=== PATIENT | female | born 1965 | race Caucasian/White ===

== ENCOUNTER 2017-04-25 10:13 | Emergency (ER) | payer SELFPAY ==
[~2017-04-25] VITALS: Wt 78.3 kg
--- NOTE | 2017-04-25 11:14 | ERD ---
ER Documentation Chief Complaint Chief Complaint SYNCOPAL EPISODE 2 DAYS AGO X3, GENERALIZED WEAKNESS REPORTED HPI The patient is a 51-year-old female, presenting to the ER because the heart syncope 2 days ago. She fainted 3 times over 15 minutes 2 days ago did not go to the hospital because of insurance. She did not remember what happened. She had similar symptoms previously but did not seek medical attention. She denies headache, neck pain, chest pain, dyspnea, abdominal pain, vomiting, urinary/ fecal incontinence. She does not smoke nor drink Past medical history: None Past surgical history: Appendectomy, cholecystectomy ROS All systems reviewed and are negative except as per history of present illness. Medications Home Meds No Active Prescriptions or Reported Meds Allergies Allergies: Coded Allergies: No Known Allergy (Unverified , 04/25/17) Physical Exam Vitals Vital Signs Date Time Temp Pulse Resp B/P Pulse Ox O2 Delivery O2 Flow Rate FiO2 04/25/17 10:25 98.4 81 18 127/71 98 Physical Exam Const: No acute distress. Head: Atraumatic. Eyes: Normal Conjunctiva. ENT: Normal External Ears, Nose and Mouth. Neck: Full range of motion. No meningismus. Resp: Clear to auscultation bilaterally. Cardio: Regular rate and rhythm. Abd: Soft, non distended, normal bowel sounds, non tender. Skin: No petechiae or rashes. Back: No midline or flank tenderness. Ext: No cyanosis, or edema. Neur: Awake and alert. No focal deficit Psych: Normal Mood and Affect. Result Diagram: 04/25/17 1130 04/25/17 1130 Results 24 hrs Laboratory Tests Test 04/25/17 11:30 White Blood Count 9.610^3/ul Red Blood Count 4.7810^6/ul Hemoglobin 14.6g/dl Hematocrit 44.0% Mean Corpuscular Volume 92.1fl Mean Corpuscular Hemoglobin 30.5pg Mean Corpuscular Hemoglobin Concent 33.2g/dl Red Cell Distribution Width 12.2% Platelet Count 62186^3/UL Mean Platelet Volume 9.8fl Neutrophils % 40.9% Lymphocytes % 42.3% Monocytes % 5.6% Eosinophils % 10.0% Basophils % 0.8% Nucleated Red Blood Cells % 0.0/100WBC Neutrophils # 3.910^3/ul Lymphocytes # 4.110^3/ul Monocytes # 0.510^3/ul Eosinophils # 1.010^3/ul Basophils # 0.110^3/ul Nucleated Red Blood Cells # 0.010^3/ul Sodium Level 144mmol/L Potassium Level 4.3mmol/L Chloride Level 103mmol/L Carbon Dioxide Level 30mmol/L Anion Gap 15 Blood Urea Nitrogen 16mg/dl Creatinine 0.80mg/dl Glucose Level 100mg/dl Calcium Level 9.8mg/dl Troponin I < 0.012ng/ml Procedures/[place] [id number] Radiology Main Line: [phone] DIAGNOSTIC IMAGING REPORT Patient: DESIREE FLORES : 1965 Age: 51 Sex: F MR #: [id number] DOS: 04/25/17 1122 Ordering MD: TIKA WASHINGTON MD Location: E/R Room/Bed: PROCEDURE: CT Brain without contrast. CLINICAL INDICATION: Neurologic deficit TECHNIQUE: A CT of the brain was performed on multidetector high-resolution CT scanner utilizing axial sections from the skull base through the vertex without contrast. One or more of the following dose reduction techniques were used: Automated exposure control, Adjustment of the mA and/or kV according to patient size, and/or use of iterative reconstruction technique. DICOM images are available. DOSE: CTDI = 44/45 mGy and the DLP = 720 mGy-cm. COMPARISON: None available FINDINGS: No acute intracranial hemorrhage, significant mass effect or midline shift. The rose-white differentiation is grossly preserved. Scattered right frontal and right parietal lobe calcifications. The ventricles are normal in size for age. No significant opacification of the visualized paranasal sinuses or mastoids. IMPRESSION: No acute intracranial findings. 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 RPTAT: AA .Austen Mercado MD, Date Time Electronically viewed and signed by .Austen Mercado MD, on 04/25/2017 12:26 .T/ CC: TIKA WASHINGTON MD EKG: Read by emergency physician Rate/Rhythm: Normal Sinus Rhythm 68 beats/min QRS, ST, T-waves: No ST elevation, no T inversion Impression: Normal EKG MEDICAL MAKING DECISION: The patient is a 51-year-old female, presenting with a copy of unclear etiology, is stable for outpatient follow-up. She remains when the emergency department and denies any symptoms The differential diagnoses considered include but are not limited to bradyarrhythmia, tachyarrhythmias, aortic outflow obstruction, neurogenic including subarachnoid hemorrhage, orthostatic hypotension and all of its causes , hypoglycemia, dysautonomia, medications. Departure Diagnosis: Primary Impression: Syncope Condition: Stable Comments I discussed the findings with the patient. I advised the patient to follow-up with the primary physician in about 1-2 days, sooner if needed and return if any concern. Disclaimer: Inadvertent spelling and grammatical errors are likely due to EHR/ dictation software use and do not reflect on the overall quality of patient care. Also, please note that the electronic time recorded on this note does not necessarily reflect the actual time of the patient encounter. TIKA WASHINGTON MD Apr 25, 2017 11:14
[2017-04-25 12:06] LABS: BASOPHIL # 0.1 10^3/ul (0.0-0.1); BASOPHILS % 0.8 % (0.0-2.0); BLOOD UREA NITROGEN 16 mg/dl (7-20); CALCIUM 9.8 mg/dl (8.4-10.2); CARBON DIOXIDE 30 mmol/L (21-31); GLUCOSE 100 mg/dl (70-220); HEMOGLOBIN 14.6 g/dl (12.0-16.0); LYMPHOCYTES # 4.1 10^3/ul (0.8-2.9); LYMPHOCYTES % 42.3 % (15.0-51.0); MEAN CORPUSCULAR HEMOGLOBIN 30.5 pg (29.0-33.0); MEAN CORPUSCULAR HGB CONC 33.2 g/dl (32.0-37.0); MEAN CORPUSCULAR VOLUME 92.1 fl (82.0-101.0); MEAN PLATELET VOLUME 9.8 fl (7.4-10.4); MONOCYTE # 0.5 10^3/ul (0.3-0.9); MONOCYTES % 5.6 % (0.0-11.0); NEUTROPHIL # 3.9 10^3/ul (1.6-7.5); NEUTROPHILS % 40.9 % (39.0-77.0); PLATELET COUNT 406 10^3/UL (140-415); POTASSIUM 4.3 mmol/L (3.5-5.1); RED BLOOD COUNT 4.78 10^6/ul (4.20-5.40); RED CELL DISTRIBUTION WIDTH 12.2 % (11.5-14.5); SODIUM 144 mmol/L (135-144); WHITE BLOOD COUNT 9.6 10^3/ul (4.8-10.8)
[2017-04-25 12:19] LABS: TROPONIN-I < 0.012 ng/ml (0.00-0.12)
[2017-04-25 12:25] LABS: ANION GAP 15 (8-16)
[2017-04-25 12:26] LABS: CHLORIDE 103 mmol/L (97-110)
--- NOTE | 2017-04-25 12:26 | RADRPT ---
PROCEDURE: CT Brain without contrast. CLINICAL INDICATION: Neurologic deficit TECHNIQUE: A CT of the brain was performed on multidetector high-resolution CT scanner utilizing a xial sections from the skull base through the vertex without contrast. One or more of the following dose reduction techniques were used: Automated exposure control, Adjustment of the mA and/or kV acc ording to patient size, and/or use of iterative reconstruction technique. DICOM images are available . DOSE: CTDI = 44/45 mGy and the DLP = 720 mGy-cm. COMPARISON: None available FINDINGS: No acute intracranial hemorrhage, significant mass effect or midline shift. The rose-white different iation is grossly preserved. Scattered right frontal and right parietal lobe calcifications. The ventricles are normal in size for age. No significant opacification of the visualized paranasal sinuses or mastoids. IMPRESSION: No acute intracranial findings. Scattered right frontal and right parietal lobe calcifications is nonspecific but may be a sequela o f old healed neurocysticercosis. RPTAT: AA .Austen Mercado MD, MD Date Time Electronically viewed and signed by .Austen Mercado MD, MD on 04/25/2017 12:26 .T/
[2017-04-25 13:14] VITALS: BP 119/58; PULSE 71; RESP 18; TEMP 98
== END 2017-04-25 16:07 | disposition home or self-care (01) ==
LOC: E/R 10:13
DX: R55 Syncope and collapse (principal)
CPT/HCPCS: 36415; 70450; 80048; 84484; 85025; 93005